=== PATIENT | male | born 1995 | race Caucasian/White ===

== ENCOUNTER 2021-03-30 11:40 | Emergency (ER) | payer BC, SELFPAY ==
--- NOTE | ~2021-03-30 | XR_ITS ---
EXAMINATION: XR tibia fibula LT 2V INDICATION: Axe injury to the ankle TECHNIQUE: Two views of the left tibia and fibula are obtained on four radiographs. COMPARISON: None available FINDINGS: There is a defect involving the medial cortex of the distal tibia with overlying soft tissu e swelling. Bone alignment at the knee and ankle is normal. No additional acute osseous findings are evident. IMPRESSION: 1. Open fracture in the medial aspect of the distal tibia. Reviewed, dictated and finalized at location A. [facility] NURSE [facility]ACTITION[facility]
[2021-03-30 11:50] VITALS: BP 165/94; PULSE 101; RESP 16; TEMP 36.5; O2SAT 99
--- NOTE | 2021-03-30 13:28 | ED.WOUNDLAC ---
HPI - Wound/Laceration General Chief Complaint: Wound/Laceration <Vianey Brunson PA-C - Last Filed: 03/30/21 15:57> Stated Complaint: L LOWER LEG VS AX <Vianey Brunson PA-C - Last Filed: 03/30/21 15:57> Time Seen by Provider: 03/30/21 12:21 <Vianey Brunson PA-C - Last Filed: 03/30/21 15:57> Source: patient <Vianey Brunson PA-C - Last Filed: 03/30/21 15:57> Mode of arrival: ambulatory <Vianey Brunson PA-C - Last Filed: 03/30/21 15:57> Limitations: no limitations <Vianey Brunson PA-C - Last Filed: 03/30/21 15:57> History of Present Illness HPI narrative: This is a 25 year old male that presents to the ER for laceration to the left leg sustained just prior to arrival. Reports he was chopping wood and accidentally cut himself with the ax. Reports laceration to the left leg which is painful. He is up to date on tetanus. Denies decreased ROM or numbness. <Vianey Brunson PA-C - Last Filed: 03/30/21 15:57> Related Data Allergies/Adverse Reactions: Allergies Allergy/AdvReac Type Severity Reaction Status Date / Time vancomycin Allergy Redness of Verified 03/30/21 12:00 Skin <Vianey Brunson PA-C - Last Filed: 03/30/21 15:57> Review of Systems Review of Systems: CONSTITUTIONAL: Denies fever SKIN: Reports laceration MUSCULOSKELETAL: Reports joint pain, and myalgia. NEUROLOGIC: Denies numbness <Vianey Brunson PA-C - Last Filed: 03/30/21 15:57> All systems reviewed & are unremarkable except as noted in HPI and below <Vianey Brunson PA-C - Last Filed: 03/30/21 15:57> [facility] Past Medical History Medical History: Medical History (Updated 03/30/21 @ 15:48 by Vinaey Brunson PA-C) No active medical problems <Vianey Brunson PA-C - Last Filed: 03/30/21 15:57> Social History Social History: Social History (Updated 03/30/21 @ 15:40 by Vianey Brunson PA-C) Substance use: never <Vianey Brunson PA-C - Last Filed: 03/30/21 15:57> Exam Narrative: GENERAL: Well-appearing, well-nourished, and in no acute distress. HEAD: Normocephalic, atraumatic. EYES: EOMI. EXTREMITIES: Normal range of motion in the left toes, foot and ankle. 7 cm linear laceration into subcutaneous tissue to the left lower leg. Normal DP pulse and PT pulse. Normal sensation SKIN: Warm, dry, no rash. NEURO: No focal deficits. Alert and oriented x3. PSYCH: Normal mood and affect <Vianey Brunson PA-C - Last Filed: 03/30/21 15:57> Course PARTNERSHIP MANAGER/PA Physician Supervision For this patient encounter, I reviewed the PARTNERSHIP MANAGER or PA documentation, treatment plan, and medical decision making. <Garth Dai MD - Last Filed: 03/30/21 20:30> Consultations Consultation #1: Spoke with Dr. Johnson about patient and work-up. Would like wound to be loosely approximated. Patient will be started on antibiotics and will follow up in clinic <Vianey Brunson PA-C - Last Filed: 03/30/21 15:57> Date: 03/30/21 <Vianey Brunson PA-C - Last Filed: 03/30/21 15:57> Vital Signs Vital signs: Vital Signs Temperature 97.7 F 03/30/21 11:50 Pulse Rate 101 H 03/30/21 11:50 Respiratory Rate 16 03/30/21 11:50 Blood Pressure 165/94 H 03/30/21 11:50 Pulse Oximetry 99 03/30/21 11:50 Temperature 97.7 F 03/30/21 11:50 Pulse Rate 96 03/30/21 16:17 Respiratory Rate 19 03/30/21 16:17 Blood Pressure 153/93 H 03/30/21 16:17 Pulse Oximetry 99 03/30/21 16:17 <Vianey Brunson PA-C - Last Filed: 03/30/21 15:57> Vital Signs Temperature 97.7 F 03/30/21 11:50 Pulse Rate 101 H 03/30/21 11:50 Respiratory Rate 16 03/30/21 11:50 Blood Pressure 165/94 H 03/30/21 11:50 Pulse Oximetry 99 03/30/21 11:50 Temperature 97.7 F 03/30/21 11:50 Pulse Rate 96 03/30/21 16:17 Respiratory Rate 19 03/30/21 16:17 Blood Pressure 153/93 H 03/30/21 16:17 Pulse Oximetry 99 03/30/21 16:17 <Garth Dai MD - Last Filed: 03/30/21 20:30>
[2021-03-30 13:35] VITALS: BP 156/91; PULSE 93; RESP 18; O2SAT 97
[2021-03-30] MEDS: ceFAZolin SODIUM 1 GM VIAL IV PUSH (14:22)
[2021-03-30 16:17] VITALS: BP 153/93; PULSE 96; RESP 19; O2SAT 99
== END 2021-03-30 16:18 | disposition home or self-care (01) ==
PROVIDERS: Emergency Provider Emergency Medicine
DX: S82.392B Other fracture of lower end of left tibia, initial encounter for open fracture type I or II (principal); W27.0XXA Contact with workbench tool, initial encounter
CPT/HCPCS: 12002; 73590; 96374; 99284; J0690